=== PATIENT | male | born 1975 | race Caucasian/White ===

== ENCOUNTER 2022-03-09 09:30 | Inpatient (IN) ==
--- NOTE | 2022-02-03 16:01 | PAT Medication Instructions ---
Medication Instructions Date of Service February 03, 2022 Home Medications Medical Marijuana 1 dose inhalation DAILY PRN amlodipine 5 mg tablet 5 mg PO QAM celecoxib 200 mg capsule (Celebrex) 200 mg PO BID cetirizine 10 mg tablet (Zyrtec) 10 mg PO QAM hydrochlorothiazide 25 mg tablet 25 mg PO QAM losartan 50 mg tablet 50 mg PO QAM multivitamin 1 tab PO QAM potassium chloride 10 mEq capsule,extended release 10 meq PO QAM ASK your surgeon for instructions celecoxib 200 mg capsule (Celebrex) 200 mg PO BID STOP taking 24 hours before surgery Medical Marijuana 1 dose inhalation DAILY PRN DO NOT take the morning of surgery cetirizine 10 mg tablet (Zyrtec) 10 mg PO QAM hydrochlorothiazide 25 mg tablet 25 mg PO QAM losartan 50 mg tablet 50 mg PO QAM multivitamin 1 tab PO QAM potassium chloride 10 mEq capsule,extended release 10 meq PO QAM Take morning of surgery With a small sip of water, OTHERWISE NOTHING TO EAT OR DRINK AFTER MIDNIGHT: amlodipine 5 mg tablet 5 mg PO QAM Other Notes If you have any questions please call us at [phone] or [phone] or [phone] or [phone]
--- NOTE | 2022-02-11 10:30 | Anesthesiology Consultation ---
Date of Service February 11, 2022 Assessment & Plan (1) Encounter for pre-operative examination: - surgeon ordered PCP clearance 02/16/22. Chart Review Chart Review: Pending: Refer to Additional Notes / Consult section and Patient seen in Pre Admission Testing Teaching & Discussion Pre-Anesthesia Teaching/Discussion Notes: Instructed NPO after midnight before surgery, except medications with 15 cc of water. Medication instructions provided according to the PAT guidelines. History Surgery Operation Date: 03/09/22 07:45 Proposed Procedures p L5-S1 Decompression and Fusion, L3-L4 Decompression with Possible Coflex, Spinal Cord Monitoring - Charly Rodriguez DO Height/Weight Height: 5 ft 11 in Weight: 83.1 kg Allergies Allergy/AdvReac Type Severity Reaction Status Date / Time shellfish derived Allergy Unknown + ALLERGY Verified 02/03/22 12:13 TESTED A CHILD Medications Home Medications Medication Instructions Recorded Confirmed Last Taken Medical Marijuana 1 dose inhalation DAILY PRN Anxiety 02/03/22 02/03/22 Unknown amlodipine 5 mg tablet 5 mg PO QAM 02/03/22 02/03/22 Unknown celecoxib 200 mg capsule (Celebrex) 200 mg PO BID 02/03/22 02/03/22 Unknown cetirizine 10 mg tablet (Zyrtec) 10 mg PO QAM 02/03/22 02/03/22 Unknown hydrochlorothiazide 25 mg tablet 25 mg PO QAM 02/03/22 02/03/22 Unknown losartan 50 mg tablet 50 mg PO QAM 02/03/22 02/03/22 Unknown multivitamin 1 tab PO QAM 02/03/22 02/03/22 Unknown potassium chloride 10 mEq 10 meq PO QAM 02/03/22 02/03/22 Unknown capsule,extended release aspirin 81 mg PO QAM 02/11/22 02/11/22 Unknown tramadol 50 mg PRN Pain 02/11/22 Unknown Additional Notes: Pt advised to contact prescriber and surgeon for aspirin instructions, 81 mg. He was advised can continue tramadol if needed. This was also written on provided medication instructions. Patient verbalized full understanding and agreement, denied questions or concerns. Past Medical History Medical History (Updated 02/11/22 @ 11:06 by Ev Pepper PA-C) Anxiety Degenerative disc disease GERD (gastroesophageal reflux disease) if eats tomato products late at night Hypertension controlled, stable per pt Medical marijuana use Post traumatic stress disorder Sleep apnea NO DEVICE USED Patient denies h/o stroke, seizures, heart attack, heart failure, DM, blood clots or blood transfusions. Exercise / Class Metabolic Activity II 4-5 Yardwork/Stairs/Walk up hill (denies CP or SOB with 1 FOS) Past Family History Family History Other No family history of adverse response to anesthesia Past Surgical History Surgical History History of carpal tunnel release LEFT History of colonoscopy History of myringotomy History of tonsillectomy [place] teeth removed Past Anesthesia History No Hx of Anesthesia Complications and No Family Hx of Anesthesia Complications History of PONV No Hx of PONV and Hx of Motion Sickness Social History Smoking Status: Former smoker tobacco type: cigarettes and smokeless tobacco Do You Dip or Chew Tobacco: Yes (ADVISED) Smoking End Date: 1 YEAR AGO Hx Alcohol Use: No substance use type: does not use Review of Systems Patient denies chest pain, shortness of breath, dyspnea on exertion, fever, chills, cough, wheezing, or palpitations. Physical Exam Vital Signs Vitals BP 121/78 P 87 TEMP 98.4 SP02 98% on RA RESP 18 Physical Full cervical extension range of motion without pain TMD 3.5 finger breadths Mallampati Score 2 Dentition: intact, front upper chipped teeth, unsure if has caps/crowns; denies loose teeth, implants or bridges Lungs: normal respiratory effort. Clear throughout to auscultation, no adventitious breath sounds Cardiac: regular rate and rhythm, no murmurs noted Carotid arteries: negative bruit bilat Lab Results Anesthesia Preop Results Results Anesthesia Widget: WBC 7.44 K/ul (4.8-10.8) 02/11/22 Hgb 18.2 g/dl (14.0-18.0) H 02/11/22 Hct 51.5 % (40.1-51.0) H 02/11/22 Plt 345 K/uL (130-400) 02/11/22 Na 136 mmol/L (136-145) 02/11/22 K 3.7 mmol/L (3.5-5.1) 02/11/22 Cl 101 mmol/L (98-107) 02/11/22 CO2 28 mmol/L (21-32) 02/11/22 BUN 20 mg/dl (6-23) 02/11/22 Creat 0.86 mg/dl (0.6-1.4) 02/11/22 Glucose Level 78 mg/dl (70-99(Fasting)) 02/11/22 PT 10.9 Seconds (9.0-12.0) 02/11/22 PTT 28.3 Seconds (21.0-31.0) 02/11/22 INR 1.0 (0.9-1.1) 02/11/22 Urine Color Yellow 02/11/22 Urine Appearance Clear (Clear) 02/11/22 Urine pH 6.0 (4.5-7.5) 02/11/22 Urine Specific [place] 1.021 (1.000-1.030) 02/11/22 Urine Protein Negative (Negative) 02/11/22 Urine Glucose (UA) Negative (Negative) 02/11/22 Urine Ketones Negative (Negative) 02/11/22 Urine Blood Negative (Negative) 02/11/22 Urine Nitrite Negative (Negative) 02/11/22 Urine Bilirubin Negative (Negative) 02/11/22 Urine Urobilinogen Negative (Negative) 02/11/22 Urine Leukocyte Esterase Negative (Negative) 02/11/22 Blood Type O Positive 02/11/22 Antibody Screen NEGATIVE 02/11/22 Testing Electrocardiogram Date: 02/11/22 NSR, rate 86 bpm Possible left enlargement Chest X-Ray Date: 02/11/22 No acute cardiopulmonary findings. Echocardiogram Date: 01/19/20 EF 63% No LV wall motion abnormalities No significant valvular pathology Stress Test Date: 01/30/20 Exercise METS 12.9 MPHR 99% Negative for exertional chest pain or EKG myocardial ischemia COVID-19 Risk Screen Screening Information COVID-19 Screen Date: 02/11/22 Exposure 21 Days Family/Household +COVID Last 21 Days: No Exposure 10 Days Any COVID Exposure Last 10 Days: No Symptoms Last 10 Days Experienced COVID Sx Last 10 Days: No + COVID 0-90 Days COVID + in Last 0-90 Days: No
[~2022-03-09 09:30] MED LIST: ACETAMINOPHEN 500 MG TAB PO SCH; CeleBREX 200 MG CAP PO SCH; GABAPENTIN 900 MG DOSE PO SCH; LR 15ML/HR IV SCH; ceFAZolin 2000MG 2,000 MG/15 ML SYR IV SCH
[2022-03-09] MEDS ORDERED: MIDAZOLAM HCL 1 MG/ML 2ML VIAL ONE (12:11)
[2022-03-09] MEDS ORDERED: DEXAMETHASONE SOD INJ 4 MG/ML VIAL ONE (12:11)
[2022-03-09] MEDS ORDERED: PROPOFOL IV EMULSION 10 MG/ML 20 ML VIAL IV ONE ×2 (12:11→13:05)
[2022-03-09] MEDS ORDERED: ONDANSETRON INJ 2 MG/ML 2 ML VIAL ONE (12:11)
[2022-03-09] MEDS ORDERED: fentaNYL citrate 100 MCG/2 ML VIAL ONE ×2 (12:11→13:24)
[2022-03-09] MEDS ORDERED: ROCURONIUM BROMIDE 10 MG/ML 5 ML VIAL IV ONE ×6 (12:12)
[2022-03-09] MEDS ORDERED: LIDOCAINE 2% MPF LOCAL 5 ML VIAL INFIL ONE (12:13)
[2022-03-09] MEDS ORDERED: ONDANSETRON INJ 2 MG/ML 2 ML VIAL IV PRN ×2 (12:22→17:12)
[2022-03-09] MEDS ORDERED: ATROPINE SULFATE 0.1 MG/ML 10ML SYR IV PRN (12:22)
[2022-03-09] MEDS ORDERED: PROMETHAZINE HCL 6.25 MG in SODIUM CHLORIDE 0.9% 50 ML IV PRN (12:22)
[2022-03-09] MEDS ORDERED: ePHEDrine sulfate 50 MG/ML AMP IV PRN (12:22)
--- NOTE | 2022-03-09 12:24 | History & Physical Bridge Note ---
Date of Service March 09, 2022 History & Physical Bridge Note I have examined the patient, reviewed the History & Physical and in the interval since the performance of the History & Physical I have noted the following changes of clinical significance: no changes noted
--- NOTE | 2022-03-09 12:25 | History & Physical Report ---
Date of Service March 09, 2022 Assessment & Plan (1) Neurogenic claudication due to lumbar spinal stenosis: Plan: L5-S1 decompression and fusion, L3-L4 decompression with possible Coflex History of Present Illness Chief Complaint: Back and leg pain Primary Care Provider: Gavin Hurtado This is a 46-year-old male who presents with chronic persistent back and leg pain after failing course of nonoperative care is here for surgical invention. Allergies Allergy/AdvReac Type Severity Reaction Status Date / Time shellfish derived Allergy Unknown + ALLERGY Verified 03/09/22 10:00 TESTED A CHILD Home Medications Medication Instructions Recorded Confirmed Type Medical Marijuana 1 dose inhalation DAILY PRN Anxiety 02/03/22 03/09/22 History amlodipine 5 mg tablet 5 mg PO QAM 02/03/22 03/09/22 History celecoxib 200 mg capsule (Celebrex) 200 mg PO BID 02/03/22 03/09/22 History cetirizine 10 mg tablet (Zyrtec) 10 mg PO QAM 02/03/22 03/09/22 History hydrochlorothiazide 25 mg tablet 25 mg PO QAM 02/03/22 03/09/22 History losartan 50 mg tablet 50 mg PO QAM 02/03/22 03/09/22 History multivitamin 1 tab PO QAM 02/03/22 03/09/22 History potassium chloride 10 mEq 10 meq PO QAM 02/03/22 03/09/22 History capsule,extended release aspirin 81 mg PO QAM 02/11/22 03/09/22 History tramadol 50 mg PRN Pain 02/11/22 History Past Med/Surg History Medical History (Updated 03/09/22 @ 12:25 by Charly Rodriguez DO) Anxiety Degenerative disc disease GERD (gastroesophageal reflux disease) if eats tomato products late at night Hypertension controlled, stable per pt Medical marijuana use Post traumatic stress disorder Sleep apnea NO DEVICE USED Surgical History History of carpal tunnel release LEFT History of colonoscopy History of myringotomy History of tonsillectomy [place] teeth removed Family History Other No family history of adverse response to anesthesia Social History Smoking Status: Former smoker Smoking End Date: 1 YEAR AGO; Second Hand Exposure: Yes (LIMITED EXPOSURE>FATHER SMOKES); Do You Dip or Chew Tobacco: Yes (ADVISED); Hx Alcohol Use: No Preferred Language: Hungarian Receiver Bulk System Required: No Beliefs That Will Affect Care: None Current Living Situation: Alone Feels Safe at Home: Yes Safety Concerns: Feels Safe At This Time Assistive Devices: Contacts and Glasses Physical Exam Physical Exam: Patient is alert and oriented Heart regular rhythm Lungs clear Results & Data Results & Data ([facility]) Vital Signs (Past 12 Hours) Vital Signs Temp Pulse Resp BP Pulse Ox O2 Del Method 03/09/22 10:04 36.8 C 85 20 153/100 H 99 Room Air
[2022-03-09] MEDS ORDERED: ceFAZolin 330 MG/ML 1 GM VIAL ONE (12:58)
[2022-03-09] MEDS ORDERED: BUPIVACAINE/EPINEPHRINE 0.25% 1:200,000 30 ML VIAL ONE (12:58)
[2022-03-09] MEDS ORDERED: GLYCOPYRROLATE 0.2 MG/ML VIAL ONE ×2 (13:22)
[2022-03-09] MEDS ORDERED: NEOSTIGMINE METHYLSULFATE 1 MG/ML 10ML VIAL ONE (13:22)
--- NOTE | 2022-03-09 14:56 | Operative Report ---
Post Operative Report Pre & Post Diagnosis Operation Date: 03/09/22 11:10 Pre-Op Diagnosis: Lumbar disc herniation with radiculopathy Post-Op Diagnosis: Same I identified the patient and participated in the time-out.: Yes Procedure Operation Date: 03/09/22 11:10 Actual Procedures #1 lumbar decompression bilateral medial facetectomies and foraminotomies L3-L4 L4-L5 L5-S1. #2 posterior spinal fusion L5-S1. #3 placement of posterior instrumentation L5-S1. #4 placement of Coflex 14 mm in size at L3-L4. #5 interbody fusion L5-S1. #6 placement of Spira 14 x 26 mm cage at L5-S1. #7 placement of locally harvested morselized autograft in the posterior gutters. #8 placement of I factor model V toss interbody space and posterior gutters. Surgeon Charly Rodriguez, Naval Inspector Natalya Gomez Estimated Blood Loss 250 Findings Consistent with Post-Op Diagnosis Specimens None Indications This is a 46-year-old male who presents to the emergency diagnosis after failed course of nonoperative care is here for the above-mentioned procedure. Description of Procedure Patient was met with identified informed consent obtained. Patient was then taken to the operative suite underwent intubation placed in a prone position the Riley table top Florentino frame. All bony prominences well-padded eyes inspected to ensure no external pressure placed upon the. This point the lumbar spine was prepped and draped in a sterile fashion. Sharp dissection with the assistance of Bovie cautery was formed down to and exposing the lamina of L3-L4 and L5 including the transverse processes and sacral ala L5-S1 bilaterally. Then performed a complete laminectomy of L5 partial laminectomy of L4 and partial laminectomy of L3 including bilateral medial facetectomies and foraminotomies. I noted significant subarticular stenosis as well as foraminal disease possibly L5-S1 on the right with evidence of excess of the exiting nerve root compression. After complete decompression pedicle screws were placed in L5 and S1 levels bilaterally with assistance of fluoroscopy and the proper sized kyaw placed. By way of a transit foraminal approach and right complete discectomy of L5-S1 was performed endplates curetted to subcortical bleeding bone and a 14 x 26 mm spiral cage with I factor tapped in position. The proper size rods were then contoured and locked in position bilaterally. I then placed a 14 mm Coflex at at L3-L4 and crimped it into position. The transverse processes of L5 and s acral ala burred to subcortical bleeding bone. I factor model V testing locally harvested morselized autograft was placed in the posterior gutters. 15 round NORAH drain inserted. The incision was then closed with 1 Vicryl the fascia 2-0 Vicryl subcutaneously and 4 Monocryl for final skin closure. Steri-Strip sterile dressings placed. Patient waken taken to the PACU in stable condition. Please note spinal cord monitoring visualized at the procedure no changes noted. Lastly Natalya Gomez was present at the entire surgeon while the patient positioning complex portions of the surgery and final skin closure. I attest to the content of the Intraoperative Record and any orders documented therein. Any exceptions are noted below.
--- NOTE | 2022-03-09 15:23 | Fluoroscopy Report ---
FL lumbar spine 2-3V CLINICAL HISTORY: Decompression and fusion. COMPARISON STUDY: None. FLUOROSCOPY TIME: 26.2 seconds. FLUOROSCOPIC IMAGES: 2 FINDINGS: Fluoroscopy was provided during L3-S1 posterior decompression with L5-S1 discectomy, bilate ral pedicle screw fusion and placement of an L3-L4 Coflex device. IMPRESSION: Postoperative findings within the lumbosacral spine, as described above. ACT 112: Negative or not required by law. Electronically signed by: Dejuan Neumann M.D. 03/09/2022 3:22 PM
[2022-03-09] MEDS: fentaNYL citrate 100 MCG/2 ML VIAL IV PRN ×5 (15:25→15:45)
[2022-03-09] MEDS: HYDROmorphone INJ 2 MG/ML SYR/VIAL IV PRN ×3 (16:00→16:15)
--- NOTE | 2022-03-09 16:42 | Anesthesiology Progress Note ---
Date of Service March 09, 2022 Anesthesia Post Procedure Vital Signs Vital Signs: Temp Pulse Pulse Resp BP Pulse Ox O2 Del Method 03/09/22 16:05 97 H 5 L 148/98 H 95 Oxymask 03/09/22 15:45 87 14 142/93 H 97 Oxymask 03/09/22 15:35 89 12 155/107 H 95 Oxymask 03/09/22 16:15 37.2 C 105 H 14 136/97 98 Nasal Cannula 03/09/22 15:25 91 H 9 L 141/106 H 98 Oxymask 03/09/22 15:17 36.1 C L 99 H 16 122/77 98 Oxymask 03/09/22 10:04 36.8 C 85 20 153/100 H 99 Room Air O2 Flow Rate 03/09/22 16:05 2 03/09/22 15:45 2 03/09/22 15:35 3 03/09/22 16:15 2 03/09/22 15:25 4 03/09/22 15:17 5 03/09/22 10:04 Pain Intensity Back: Pain Intensity: 5 Transfer of Care Handoff Completed per policy Notes Mental Status: alert / awake / arousable and participated in evaluation Patient Amnestic to Procedure: Yes Nausea / Vomiting: adequately controlled Pain: adequately controlled Airway Patency, RR, SpO2: stable & adequate BP & HR: stable & adequate Hydration State: stable & adequate Anesthetic Complications: no major complications apparent and Pt Satisfied with anesthetic care
[2022-03-09] MEDS ORDERED: diphenhydrAMINE Capsule 25 MG CAP PO PRN (17:12)
[2022-03-09] MEDS ORDERED: METOCLOPRAMIDE HCL INJ 5 MG/ML 2 ML VIAL IV PRN (17:12)
[2022-03-09] MEDS ORDERED: LORazepam 0.5 MG TAB PO PRN (17:12)
[2022-03-09] MEDS ORDERED: HYDROmorphone INJ 0.5 MG/0.5 ML SYR IV PRN (17:12)
[2022-03-09] MEDS ORDERED: bisacodyL 10 MG SUPP PR PRN (17:12)
[2022-03-09] MEDS ORDERED: ONDANSETRON 4 MG OD TAB PO PRN (17:12)
[2022-03-09] MEDS ORDERED: hydrOXYzine HCl 25 MG TAB PO PRN (17:12)
[2022-03-09] MEDS ORDERED: NON-FORMULARY MEDICATION (Medical Marijuana 1 EA) INH PRN (17:12)
[2022-03-09] MEDS ORDERED: LORazepam 0.5 MG in SYRINGE 0 ML IV PRN (17:12)
[2022-03-09] MEDS ORDERED: HYDROmorphone INJ 1 MG/ML SYRINGE IV PRN (17:12)
[2022-03-09] MEDS ORDERED: FAMOTIDINE 20 MG TAB PO PRN (17:12)
[2022-03-09] MEDS ORDERED: SOD PHOSPHATE/SOD BIPHOSPHATE ENEMA 132 ML BTL PR PRN (17:12)
[2022-03-09] MEDS ORDERED: ACETAMINOPHEN 500 MG TAB PO PRN (17:12)
[2022-03-09] MEDS ORDERED: ALUMINUM/MAGNESIUM SUSP 30 ML UDC PO PRN (17:12)
[2022-03-09] MEDS ORDERED: MAGNESIUM HYDROXIDE SUSP 30 ML UDC PO PRN (17:12)
[2022-03-09] MEDS ORDERED: PROMETHAZINE HCL 12.5 MG in SODIUM CHLORIDE 0.9% 50 ML IV PRN (17:12)
[2022-03-09] MEDS ORDERED: ACETAMINOPHEN 1,000 MG/100 ML VIAL IV PRN (17:12)
[2022-03-09] MEDS ORDERED: NALOXONE HCL 0.4 MG/1 ML VIAL/CARP IV PRN (17:12)
[2022-03-09] MEDS: LACTATED RINGER'S 1,000 ML IV SCH (17:31)
--- NOTE | 2022-03-09 18:48 | Consultation ---
Date of Consultation March 09, 2022 Assessment & Plan (1) Neurogenic claudication due to lumbar spinal stenosis: (2) Hypertension: (3) Sleep apnea: (4) Anxiety: (5) Seasonal allergies: Plan 46-year-old male with chronic persistent back pain for an elective decompression and fusion procedure under the care of Dr. Rodriguez after failed conservative management. Past medical history includes hypertension, anxiety, PTSD, obstructive sleep apnea, GERD. Neurogenic claudication due to lumbar spinal stenosis: POD# 0 s/p lumbar decompression and fusion L3-S1 with Dr. Rodriguez. Per ortho for pain control, wound care, anticoagulation and activities Monitor H&H, continue incentive spirometry PT/OT when appropriate Hypertension: Takes amlodipine, HCTZ + KCL replacement, losartan; normotensive postop - continue Takes baby aspirin daily; resume with surgery recommendation Anxiety: PTSD: Uses medical marijuana; not currently at the hospital CORINNE: Does not use a CPAP machine Discussed and pt demonstrated appropriate ISB use Seasonal Allergies: Takes Cetirizine; continue Disposition: PCP: Dr. Hurtado CODE STATUS: Full code VTE prophylaxis: Teds and SCDs per primary team I personally was able to review all current laboratory work and diagnostic images obtained in the ED. Additionally, I was able to review the patients past medication reconciliation and history with direct visualization in the patients chart. This patient was seen in collaboration with Dr. Lara. Supervising Physician Co-Signing Physician Notes I have seen and examined the patient and have discussed the case with the provider above. I agree with the assessment and plan as stated with the following exceptions. 46 yo M s/p lumbar surgery earlier today. Reports his pain is well controlled. He reports feeling his typical "sciatica" pain on his right gluteus and lower back area down his right leg. Since shifting around earlier, he has had significant output into NORAH drain and some bleeding onto his dressing. His heart rate has increased over the last few hours. He denies lightheadedness, chest pain, SOB or other issues. Will bolus 1L LR now and continue his LR at 100cc/hr. Physical exam reveals tachy rate, regular rhythm with no murmurs, gallops or rubs. NORAH drain in place and almost full with agosto red bloody drainage. Lungs are CTAB, Abdomen is soft NTND and legs are warm and well perfused. Skin is warm and dry, No neuro deficits and he is mentating well with intact speech and memory. Reassess vital signs after bolus and if persistently bleeding or tachycardic, consider moving to telemetry and notify Dr. Rodriguez. Thank you for this consultation. DO Marco History of Present Illness Requesting Physician: Dr. Rodriguez Reason for Consultation: post-operative medical management Attending Physician: Charly Rodriguez DO History of Present Illness This is a 46-year-old male who presented to the [facility] with chronic persistent back pain for an elective decompression and fusion procedure under the care of Dr. Rodriguez after failed conservative management. Past medical history includes hypertension, anxiety, PTSD, obstructive sleep apnea, GERD. The patient was sitting upright in his hospital bed when I saw him. He denies WILLSON, SOB, CP, palpitations, N/V/D. He was trying to use the urinal when I was in the room but he was moving around causing some incisional bleeding at his dressing site. Pt has tolerated clear liquid diet and will advance as ordered. [facility] medical management. Please see A/P for further details. Allergies Allergy/AdvReac Type Severity Reaction Status Date / Time shellfish derived Allergy Unknown + ALLERGY Verified 03/09/22 10:00 TESTED A CHILD Home Medications Medication Instructions Recorded Confirmed Type Medical Marijuana 1 dose inhalation DAILY PRN Anxiety 02/03/22 03/09/22 History amlodipine 5 mg tablet 5 mg PO QAM 02/03/22 03/09/22 History celecoxib 200 mg capsule (Celebrex) 200 mg PO BID 02/03/22 03/09/22 History cetirizine 10 mg tablet (Zyrtec) 10 mg PO QAM 02/03/22 03/09/22 History hydrochlorothiazide 25 mg tablet 25 mg PO QAM 02/03/22 03/09/22 History losartan 50 mg tablet 50 mg PO QAM 02/03/22 03/09/22 History multivitamin 1 tab PO QAM 02/03/22 03/09/22 History potassium chloride 10 mEq 10 meq PO QAM 02/03/22 03/09/22 History capsule,extended release aspirin 81 mg PO QAM 02/11/22 03/09/22 History tramadol 50 mg PRN Pain 02/11/22 History Patient History Medical History (Updated 03/09/22 @ 20:50 by LINCOLN Valdes) Anxiety Degenerative disc disease GERD (gastroesophageal reflux disease) if eats tomato products late at night Hypertension controlled, stable per pt Medical marijuana use Post traumatic stress disorder Seasonal allergies Sleep apnea NO DEVICE USED Surgical History History of carpal tunnel release LEFT History of colonoscopy History of myringotomy History of tonsillectomy [place] teeth removed Family History Other No family history of adverse response to anesthesia Social History Smoking Status: Former smoker Smoking End Date: 1 YEAR AGO; Second Hand Exposure: Yes (LIMITED EXPOSURE>FATHER SMOKES); Do You Dip or Chew Tobacco: Yes (ADVISED); Hx Alcohol Use: No Preferred Language: Kittitian Cream Beater Required: No Beliefs That Will Affect Care: None Current Living Situation: Alone Feels Safe at Home: Yes Safety Concerns: Feels Safe At This Time Assistive Devices: Contacts and Glasses Review of Systems Review of Systems: Neuro: (-) Falls, trauma, slurred speech HEENT: (-) WILLSON, dizziness, dysphagia, visual or auditory changes CV: (-) CP, palpitations, swelling. Lumbar NORAH drain x1 bright red blood Resp: (-) SOB GI: (-) appetite changes, N/V/D, bowel changes : (-) urinary changes Skin: (-) rashes Psych: (-) anxiety, depression Physical Exam Physical Exam: Neuro: AAOx4, PERRLA, no aphagia, memory changes, CNII-XII grossly intact HEENT: head normocephalic, moist mucus membranes CV: S1/S2, (-) M/G/R, (-) edema, cap refill < 3 seconds Resp: Lungs CTA in all rodriguez. On RA GI: Abdomen S/NT/ND, Ax4 bowel sounds, (-) CVA tenderness Musculoskeletal: 5/5 B/L UE strength, 5/5 B/L LE strength. No gait disturbance Skin: (-) rashes , (-) erythema. Psych: euthymic mood Results & Data ([facility]) Vital Signs (Past 12 Hours) Vital Signs Temp Pulse Pulse Resp BP Pulse Ox O2 Del Method 03/09/22 18:00 37.4 C 112 H 16 129/82 96 Room Air 03/09/22 17:29 37.2 C 103 H 17 126/80 95 Room Air 03/09/22 17:00 110 H 16 147/76 H 96 Room Air 03/09/22 16:05 97 H 5 L 148/98 H 95 Oxymask 03/09/22 15:45 87 14 142/93 H 97 Oxymask 03/09/22 15:35 89 12 155/107 H 95 Oxymask 03/09/22 16:15 37.2 C 105 H 14 136/97 98 Nasal Cannula 03/09/22 15:25 91 H 9 L 141/106 H 98 Oxymask 03/09/22 15:17 36.1 C L 99 H 16 122/77 98 Oxymask 03/09/22 10:04 36.8 C 85 20 153/100 H 99 Room Air O2 Flow Rate 03/09/22 18:00 03/09/22 17:29 03/09/22 17:00 03/09/22 16:05 2 03/09/22 15:45 2 03/09/22 15:35 3 03/09/22 16:15 2 03/09/22 15:25 4 03/09/22 15:17 5 03/09/22 10:04 Diagnostic Findings Lumbar Spine X-Ray 03/09/22 11:10 FL lumbar spine 2-3V CLINICAL HISTORY: Decompression and fusion. COMPARISON STUDY: None. FLUOROSCOPY TIME: 26.2 seconds. FLUOROSCOPIC IMAGES: 2 FINDINGS: Fluoroscopy was provided during L3-S1 posterior decompression with L5- S1 discectomy, bilateral pedicle screw fusion and placement of an L3-L4 Coflex device. IMPRESSION: Postoperative findings within the lumbosacral spine, as described above. ACT 112: Negative or not required by law. Electronically signed by: Dejuan Neumann M.D. 03/09/2022 3:22 PM
[2022-03-09] MEDS: ceFAZolin 2000MG 2,000 MG/15 ML SYR IV SCH (20:42)
[2022-03-09] MEDS: DOCUSATE SODIUM/SENNA 50/8.6MG TAB PO SCH (20:42)
[2022-03-09] MEDS: oxyCODONE HCL IR 5 MG TAB (IMMEDIATE RELEASE) PO PRN (20:43)
[2022-03-09] MEDS ORDERED: LACTATED RINGER'S 1,000 ML IV ONE (20:57)
[2022-03-10] MEDS: LACTATED RINGER'S 1,000 ML IV SCH (03:56)
[2022-03-10] MEDS: oxyCODONE HCL IR 5 MG TAB (IMMEDIATE RELEASE) PO PRN ×3 (05:19→17:38)
[2022-03-10] MEDS: ceFAZolin 2000MG 2,000 MG/15 ML SYR IV SCH (05:19)
[2022-03-10] MEDS: POLYETHYLENE (MIRALAX) 17 GM PACK PO SCH ×3 (05:23→17:38)
[2022-03-10] MEDS: LOSARTAN POTASSIUM 50 MG TAB PO SCH (08:09)
[2022-03-10] MEDS: dexAMETHasone 6 MG in SYRINGE 0 ML IV SCH (08:09)
[2022-03-10] MEDS: CETIRIZINE HCL 10 MG TABLET PO SCH (08:09)
[2022-03-10] MEDS: amLODIPine BESYLATE 5 MG TAB PO SCH (08:09)
[2022-03-10] MEDS: hydroCHLOROthiazide 25 MG TAB PO SCH (08:09)
[2022-03-10] MEDS: POTASSIUM CHLORIDE 10 MEQ TABCR PO SCH (08:09)
[2022-03-10] MEDS: ASPIRIN 81 MG ECTAB PO SCH (08:09)
[2022-03-10] MEDS: MULTIVITAMIN TAB PO SCH (08:09)
[2022-03-10 08:30] LABS: Basophils # (auto) 0.03 K/uL (0-0.2); Basophils % (auto) 0.2 %; Eosinophils # (auto) 0.03 K/uL (0-0.50); Eosinophils % (auto) 0.2 %; Hematocrit (blood only) 40.6 % (40.1-51.0); Hemoglobin 14.4 g/dl (14.0-18.0); Immature Granulocytes # (auto) 0.06 K/uL (0.00-0.02); Immature Granulocytes % (auto) 0.5 %; Lymphocytes # (auto) 0.98 K/uL (1.2-3.4); Lymphocytes % (auto) 8.1 %; Mean Corpuscular Hemoglobin 32.2 pg (25.0-34.0); Mean Corpuscular Hgb Conc 35.5 g/dL (32.0-36.0); Mean Corpuscular Volume 90.8 fL (80.0-100.0); Mean Platelet Volume 8.6 fL (9.4-12.4); Monocytes # (auto) 1.38 K/uL (0.24-0.82); Monocytes % (auto) 11.3 %; Neutrophils # (auto) 9.69 K/uL (1.4-6.5); Neutrophils % (auto) 79.7 %; Platelet Count 288 K/uL (130-400); RDW Coefficient of Variation 12.4 % (11.5-14.5); RDW Standard Deviation 41.4 fL (36.4-46.3); Red Blood Count 4.47 M/uL (4.63-6.08); White Blood Count 12.17 K/ul (4.8-10.8)
[2022-03-10 08:52] LABS: BUN Creatinine Ratio 15.9 (10-20); Calcium 8.6 mg/dl (8.5-10.1); Creatinine Clr Calc Pharmacy 122.4 ml/min; Est GFR (African American) 124.6 ml/min; Est GFR (Non-African American) 107.5 ml/min; Potassium 3.9 mmol/L (3.5-5.1)
--- NOTE | 2022-03-10 10:46 | Orthopedic Progress Note ---
Date of Service March 10, 2022 Assessment & Plan (1) Neurogenic claudication due to lumbar spinal stenosis: Plan: At this time we will initiate physical therapy monitor his NORAH output hopefully discharge home next day or so. Admission and Anticipated Discharge Date Admission Date: March 09, 2022 Subjective Back pain controlled leg pain improved Physical Exam Physical Exam: Patient is sitting in bed. Is good strength testing. Appears comfortable. Results & Data ([facility]) Vital Signs (Past 12 Hours) Vital Signs Temp Pulse Resp BP Pulse Ox O2 Del Method 03/10/22 07:07 37.4 C 94 H 16 119/69 96 Room Air 03/10/22 03:32 37.1 C 92 H 16 118/65 98 Room Air 03/09/22 23:49 37.2 C 101 H 18 109/64 94 Room Air
--- NOTE | 2022-03-10 14:41 | Hospitalist Progress Note ---
Date of Service March 10, 2022 Assessment & Plan (1) Neurogenic claudication due to lumbar spinal stenosis: Plan: POD #1, doing well, NORAH drain in place. Pain well managed. No BM yet but juts took Miralax. PT/OT and restrictions per Ortho spine. Monitor H/H. (2) Hypertension: Plan: chronic, at goal. Cont HCTZ and losartan (3) Sleep apnea: Plan: not currently using CPAP. (4) Anxiety: Plan: Uses medical marijuana; not currently at the hospital (5) Seasonal allergies: Plan: cont cetirizine PRN (6) DVT prophylaxis: Plan: SCDs/ambulation Full Dispo-to home in next 1-2 days [facility] and Anticipated Discharge Date Admission Date: March 09, 2022 Subjective 46 yo M s/p lumbar surgery no further bleeding at incision site today drain still in place with normal posst op output pain is well managed no BM yet but just took Miralax Was able to ambulate today Review of Systems Review of Systems: All systems were reviewed and negative except as indicated on subjective above. Physical Exam Physical Exam: CONSTITUTIONAL: WNWD, vitals as above, generally well- appearing, NAD EYES: normal conjunctivae, no scleral icterus, ENT: external ear and nose normal, MMM NECK: trachea midline, RESPIRATORY: clear to auscultation bilaterally, no crackles, rales or wheezes, normal respiratory effort CARDIOVASCULAR: regular rate and rhythm, S1 and 2 heard without murmurs, gallops or rubs, no JVD, no peripheral edema, CHEST: inspection of chest was normal GASTROINTESTINAL: soft, nontender, ND, no guarding MUSCULOSKELETAL: strength 5/5 throughout, head is normocephalic and atraumatic, SKIN: warm and dry, surgical dressing covering incision site on lower back. NEUROLOGIC: CN 2-12 grossly intact, no sensory deficit, normal cognition, normal speech, no tremor PSYCHIATRIC: alert cooperative and oriented to person, place and time. Euthymic mood, makes good eye contact, language grossly intact, recent and remote memory grossly intact. Results & Data Results & Data ([facility]) Vital Signs (Past 12 Hours) Vital Signs Temp Pulse Pulse Resp BP Pulse Ox O2 Del Method 03/10/22 11:00 36.8 C 98 H 18 122/85 98 Room Air 03/10/22 07:07 37.4 C 94 H 16 119/69 96 Room Air 03/10/22 03:32 37.1 C 92 H 16 118/65 98 Room Air Laboratory Results Short CBC 03/10/22 Range/Units 07:38 WBC 12.17 H (4.8-10.8) K/ul Hgb 14.4 (14.0-18.0) g/dl Hct 40.6 (40.1-51.0) % Plt Count 288 (130-400) K/uL BMP 03/10/22 07:38 Sodium 135 L Potassium 3.9 Chloride 101 Carbon Dioxide 29 BUN 13 Creatinine 0.82 Glucose 93 Calcium 8.6 Medications Administered Current Inpatient Medications Acetaminophen (Acetaminophen 500 Mg Tab) 1,000 mg PO Q8H PRN PRN Reason: MILD Pain Scale 1,2,3 & Pre PT Stop: 04/08/22 17:11 Al Hydrox/Mg Hydrox/Simethicone (Aluminum/Magnesium Susp 30 Ml Udc) 30 ml PO Q6H PRN PRN Reason: Dyspepsia Stop: 04/08/22 17:11 Amlodipine Besylate (Amlodipine Besylate 5 Mg Tab) [facility] [place] Stop: 04/09/22 08:59 Last Admin: 03/10/22 08:09 Dose: 5 mg Aspirin (Aspirin 81 Mg Ectab) 81 mg [facility] [place] Stop: 04/09/22 08:59 Last Admin: 03/10/22 08:09 Dose: 81 mg Bisacodyl (Bisacodyl 10 Mg Supp) 10 mg UT DAILY PRN PRN Reason: Constipation Stop: 04/08/22 17:11 Cetirizine HCl (Cetirizine Hcl 10 Mg Tablet) 10 mg [facility] [place] Stop: 04/09/22 08:59 Last Admin: 03/10/22 08:09 Dose: 10 mg Diphenhydramine HCl (Diphenhydramine Capsule 25 Mg Cap) 25 mg PO Q6H PRN PRN Reason: Allergic Rhinitis/Insomnia Stop: 04/08/22 17:11 Famotidine (Famotidine 20 Mg Tab) 20 mg PO Q12H PRN PRN Reason: Dyspepsia Stop: 04/08/22 17:11 Hydrochlorothiazide (Hydrochlorothiazide 25 Mg Tab) 25 mg PO QAM ERIK Stop: 04/09/22 08:59 Last Admin: 03/10/22 08:09 Dose: 25 mg Hydromorphone HCl (Hydromorphone Inj 0.5 Mg/0.5 Ml Syr) 0.5 mg IV Q3H PRN PRN Reason: MODERATE Pain (Scale 4,5,6) & Pre PT Stop: 03/23/22 17:11 Hydromorphone HCl (Hydromorphone Inj 1 Mg/Ml Syringe) 1 mg IV Q3H PRN PRN Reason: SEVERE Pain (Scale 7,8,9,10) Stop: 03/23/22 17:11 Hydroxyzine HCl (Hydroxyzine Hcl 25 Mg Tab) 25 mg PO Q8H PRN PRN Reason: Anxiety Stop: 04/08/22 17:11 Promethazine HCl 12.5 mg/ (Sodium Chloride) 50.5 mls @ 202 mls/hr IV Q6H PRN PRN Reason: Nausea &/or Vomiting Stop: 04/08/22 17:11 Acetaminophen (Ofirmev) 1,000 mg in 100 mls @ 400 mls/hr IV Q8H PRN PRN Reason: Pain Rating 1-3 & Pre PT Stop: 03/10/22 17:13 Lorazepam 0.5 mg/ Syringe 0.5 mls @ 2 mls/min IV Q8H PRN PRN Reason: Sedation/Anxiety Stop: 04/08/22 17:11 Dexamethasone 6 mg/ Syringe 1.5 mls @ 1 mls/min IV DAILY ERIK Stop: 03/12/22 09:02 Last Admin: 03/10/22 08:09 Dose: 1 mls/min Lorazepam (Lorazepam 0.5 Mg Tab) 0.5 mg PO Q8H PRN PRN Reason: Sedation/Anxiety Stop: 04/08/22 17:11 Losartan Potassium (Losartan Potassium 50 Mg Tab) 50 mg PO QAM ERIK Stop: 04/09/22 08:59 Last Admin: 03/10/22 08:09 Dose: 50 mg Magnesium Hydroxide (Magnesium Hydroxide Susp 30 Ml Udc) 30 ml PO Q24H PRN PRN Reason: Constipation Stop: 04/08/22 17:11 Metoclopramide HCl (Metoclopramide Hcl Inj 5 Mg/Ml 2 Ml Vial) 10 mg IV Q6H PRN PRN Reason: Nausea &/or Vomiting Stop: 04/08/22 17:11 Multivitamins (Multivitamin Tab) 1 tab PO QAM ERIK Stop: 04/09/22 08:59 Last Admin: 03/10/22 08:09 Dose: 1 tab Naloxone HCl (Naloxone Hcl 0.4 Mg/1 Ml Vial/Carp) 0.1 mg IV Q5M PRN PRN Reason: Oversedation/Resp depression Stop: 04/08/22 17:11 Ondansetron HCl (Ondansetron Inj 2 Mg/Ml 2 Ml Vial) 4 mg IV Q6H PRN PRN Reason: Nausea &/or Vomiting Stop: 04/08/22 17:11 Ondansetron HCl (Ondansetron 4 Mg Od Tab) 4 mg PO Q6H PRN PRN Reason: Nausea Stop: 04/08/22 17:11 Oxycodone HCl (Oxycodone Hcl Ir 5 Mg Tab (Immediate Release)) 5 - 10 mg PO Q4H PRN PRN Reason: Pain & Pre PT Stop: 03/23/22 17:11 Last Admin: 03/10/22 09:37 Dose: 10 mg Polyethylene Glycol (Polyethylene (Miralax) 17 Gm Pack) 17 gm PO Q6 ERIK Stop: 04/09/22 05:59 Last Admin: 03/10/22 13:18 Dose: 17 gm Potassium Chloride (Potassium Chloride 10 Meq Tabcr) 10 meq PO QAM ERIK Stop: 04/09/22 08:59 Last Admin: 03/10/22 08:09 Dose: 10 meq Senna/Docusate Sodium (Docusate Sodium/Senna 50/8.6mg Tab) 2 tab PO HS ERIK Stop: 04/08/22 20:59 Last Admin: 03/09/22 20:42 Dose: 2 tab Sodium Biphosphate/Sodium Phosphate (Sod Phosphate/Sod Biphosphate Enema 132 Ml Btl) 132 ml UT ONE PRN PRN Reason: Constipation Stop: 04/08/22 17:11 Tramadol HCl (Tramadol Hcl 50 Mg Tablet) 50 - 100 mg PO Q4H PRN PRN Reason: Moderate-Severe pain & Pre PT Stop: 04/08/22 17:11
[2022-03-10] MEDS: DOCUSATE SODIUM/SENNA 50/8.6MG TAB PO SCH (21:55)
[2022-03-11] MEDS: POLYETHYLENE (MIRALAX) 17 GM PACK PO SCH ×4 (01:00→17:57)
[2022-03-11] MEDS: oxyCODONE HCL IR 5 MG TAB (IMMEDIATE RELEASE) PO PRN ×2 (05:50→13:00)
[2022-03-11] MEDS: dexAMETHasone 6 MG in SYRINGE 0 ML IV SCH (08:41)
[2022-03-11] MEDS: ASPIRIN 81 MG ECTAB PO SCH (08:41)
[2022-03-11] MEDS: amLODIPine BESYLATE 5 MG TAB PO SCH (08:41)
[2022-03-11] MEDS: CETIRIZINE HCL 10 MG TABLET PO SCH (08:41)
[2022-03-11] MEDS: LOSARTAN POTASSIUM 50 MG TAB PO SCH (08:42)
[2022-03-11] MEDS: MULTIVITAMIN TAB PO SCH (08:42)
[2022-03-11] MEDS: POTASSIUM CHLORIDE 10 MEQ TABCR PO SCH (08:42)
[2022-03-11] MEDS: hydroCHLOROthiazide 25 MG TAB PO SCH (08:42)
--- NOTE | 2022-03-11 09:18 | Orthopedic Progress Note ---
Date of Service March 11, 2022 Assessment & Plan (1) Neurogenic claudication due to lumbar spinal stenosis: Plan: Patient will continue physical therapy today we will maintain his drain anticipate discharge home tomorrow. Admission and Anticipated Discharge Date Admission Date: March 09, 2022 Subjective Back pain is controlled leg symptoms are improving Physical Exam Physical Exam: Patient appears comfortable is constricted testing. Results & Data ([facility]) Vital Signs (Past 12 Hours) Vital Signs Temp Pulse Pulse Resp BP Pulse Ox O2 Del Method 03/11/22 07:42 37.0 C 78 18 108/68 95 Room Air 03/10/22 21:58 36.8 C 82 14 106/61 96 Room Air
--- NOTE | 2022-03-11 17:15 | Hospitalist Progress Note ---
Date of Service March 11, 2022 Assessment & Plan (1) Neurogenic claudication due to lumbar spinal stenosis: Plan: Per Dr. Lara's notes with addendum: Postop day #2 Remains stable overall Pain well controlled Continue DVT prophylaxis per Ortho service (2) Hypertension: Plan: Stable Cont amlodipine, HCTZ and losartan (3) Sleep apnea: Plan: not currently using CPAP (4) Anxiety: Plan: Uses medical marijuana; not currently at the hospital (5) Seasonal allergies: Plan: cont cetirizine PRN (6) DVT prophylaxis: Plan: SCDs/ambulation Full Dispo Ortho anticipating discharge home tomorrow Admission and Anticipated Discharge Date Admission Date: March 09, 2022 Subjective Follow-up for status post lumbar spine surgery, etc. Seen sitting up in bed, comfortable, not in distress States he feels fine overall Has some mild pain over his lower back, but ambulating well in the hallways no chest pain, dyspnea, palpitations, dizziness No other symptoms Review of Systems Review of Systems: all noted and negative except for above Physical Exam Physical Exam: General- oriented x 3, not in distress, speaks in sentences with no effort or accessory muscle use Eyes- anicteric Neck- no JVD Lungs- clear breath sounds bilaterally, no rales/wheezes Heart- normal rate, regular rhythm; no murmurs Abdomen- normal bowel sounds, nondistended, soft, nontender Extremities- no pretibial edema, no calf tenderness Neuro- alert, oriented x 3; no gross focal neurologic deficits Skin- warm & dry Results & Data Results & Data ([facility]) Vital Signs (Past 12 Hours) Vital Signs Temp Pulse Pulse Resp BP Pulse Ox O2 Del Method 03/11/22 14:14 37.2 C 102 H 14 115/74 96 Room Air 03/11/22 07:42 37.0 C 78 18 108/68 95 Room Air all noted and reviewed including below
[2022-03-11] MEDS ORDERED: SODIUM CHLORIDE 0.9% 1000ML 1,000 ML IV ONE (17:19)
[2022-03-11 17:53] LABS: Basophils # (auto) 0.02 K/uL (0-0.2); Basophils % (auto) 0.2 %; Eosinophils # (auto) 0.01 K/uL (0-0.50); Eosinophils % (auto) 0.1 %; Hematocrit (blood only) 38.2 % (40.1-51.0); Hemoglobin 13.2 g/dl (14.0-18.0); Immature Granulocytes # (auto) 0.07 K/uL (0.00-0.02); Immature Granulocytes % (auto) 0.8 %; Lymphocytes # (auto) 0.53 K/uL (1.2-3.4); Lymphocytes % (auto) 5.7 %; Mean Corpuscular Hemoglobin 32.2 pg (25.0-34.0); Mean Corpuscular Hgb Conc 34.6 g/dL (32.0-36.0); Mean Corpuscular Volume 93.2 fL (80.0-100.0); Mean Platelet Volume 8.4 fL (9.4-12.4); Monocytes # (auto) 0.63 K/uL (0.24-0.82); Monocytes % (auto) 6.8 %; Neutrophils # (auto) 7.99 K/uL (1.4-6.5); Neutrophils % (auto) 86.4 %; Platelet Count 254 K/uL (130-400); RDW Coefficient of Variation 12.9 % (11.5-14.5); RDW Standard Deviation 44.3 fL (36.4-46.3); White Blood Count 9.25 K/ul (4.8-10.8)
[2022-03-11 18:12] LABS: Albumin Globulin Ratio 1.6 (0.9-2); Albumin Level 3.5 gm/dl (3.4-5.0); BUN Creatinine Ratio 22.2 (10-20); Bilirubin,Total 0.3 mg/dl (0.2-1.0); Calcium 8.4 mg/dl (8.5-10.1); Creatinine Clr Calc Pharmacy 111.6 ml/min; Est GFR (Non-African American) 103.5 ml/min; Globulin 2.2 gm/dl (2.5-4.0); Potassium 4.1 mmol/L (3.5-5.1); Total Protein 5.7 gm/dl (6.0-8.3)
[2022-03-11] MEDS: SODIUM CHLORIDE 0.9% 1000ML 1,000 ML IV SCH (18:29)
[2022-03-11] MEDS: DOCUSATE SODIUM/SENNA 50/8.6MG TAB PO SCH (21:52)
[2022-03-11] MEDS: traMADol HCL 50 MG TABLET PO PRN (21:56)
[2022-03-11 23:51] LABS: Hematocrit (blood only) 36.8 % (40.1-51.0)
[2022-03-12] MEDS: POLYETHYLENE (MIRALAX) 17 GM PACK PO SCH ×3 (00:52→12:13)
[2022-03-12] MEDS: SODIUM CHLORIDE 0.9% 1000ML 1,000 ML IV SCH ×2 (02:08→10:20)
[2022-03-12] MEDS: traMADol HCL 50 MG TABLET PO PRN ×2 (06:15→10:15)
--- NOTE | 2022-03-12 08:48 | Discharge Summary ---
Date of Service March 12, 2022 Principal Diagnosis Lumbar spinal stenosis with radiculopathy Discharge Data Allergies Allergy/AdvReac Type Severity Reaction Status Date / Time shellfish derived Allergy Unknown + ALLERGY Verified 03/09/22 10:00 TESTED A CHILD Consultations 03/09/22 17:12 Consult Hospitalist Routine Procedures Performed Operation Date: 03/09/22 11:10 Actual Procedures p L5-S1 Decompression and Fusion, L3-L4 Decompression with Possible Coflex, Spinal Cord Monitoring(Not Applicable) - Charly Rodriguez DO Ordered Studies 03/09/22 11:10 FL lumbar spine 2-3V Routine Hospital Course (1) Neurogenic claudication due to lumbar spinal stenosis: Patient underwent lumbar decompression fusion tolerated so was taken to or thopedic for postoperative. Postop day 1 is up and ambulating. Postop day #2 on postop day or 3 pain is controlled ambulating without difficulty good strength testing. Subsidy discharged home. Discharge orders instructions from the chart for further review. Total Time Total Time Spent Total Time Spent (In Minutes): 20 minutes Discharge Plan Discharge Items Patient Disposition: Home - Self-Care Reason For Visit: POSTOP Discharge Diagnosis: Lumbar spinal stenosis with radiculopathy Activity: As commented below Non-emergency contact: Primary Care Provider Call non-emergency contact if: you have any medication questions Follow-up/Referrals: Gavin Hurtado, [email or web address]. [Primary Care Provider] - Diet: Regular Addtl Attending Provider Instructions: ACTIVITY RECOMMENDATIONS: SELF CARE INSTRUCTIONS AFTER THORACIC/LUMBAR FUSIONS 1. You may walk to your tolerance. It is good exercise for your legs and back. Expect some back and intermittent leg aches and pains. 2. You may perform "counter-top" level activities (make a sandwich, lio with a project, etc.). 3. No bending or lifting of more than 10 pounds or back twisting of any nature (roll like a log when turning in bed). 4. You may ride in a car for 20-30 minutes at a time. No driving until after your first visit with your doctor. 5. Frequent changes of position and restricting sitting to 30 minutes at a time will help limit the amount of back spasms and stiffness you may experience. 6. You may discontinue the use of ambulatory aids (cane, crutches, etc.) once your strength and confidence allow. 7. You may global marketing intern the shower and let water strike your incision when you arrive home at least once daily. Do not take a tub bath, sit in a hot tub or go into a swimming pool until after your first recheck in the office. SPECIAL CARE INSTRUCTIONS: VERY IMPORTANT TO READ AND REVIEW A. Your surgical incision has been closed with a cosmetic suture under the skin that will dissolve in about 6 weeks. In 14 days, you can use a pair of clean scissors and cut the suture that is left outside of the skin at the ends of your incision. 1. The small skin tapes can be removed 7 days after surgery if they have not fallen off by that point. 2. You may keep the wound open to air as much as possible to promote healing after post-op day number 5 unless told otherwise by your doctor. 3. If you think the wound looks like it is becoming infected (redness or worsening drainage) and/or you are experiencing fever, chill or worsening back pain and muscle spasms, contact the office so that we may evaluate you as soon as possible. B. Complications are uncommon, but please contact us if you have any signs or symptoms of: 1. wound infection (fever higher than 102.5 degrees F, redness, separation of wound, drainage, or increasing pain from the incision) 2. blood clots in legs (pain, swelling, redness and warmth in legs) 3. urinary tract infection (fever higher than 102.5 degrees F, burning upon urination or increased frequency of urination) 4. nerve problems (inability to walk on your toes or heels, numbness, loss of bowel or bladder control) 5. any other symptoms that concern you C. Please call the office at if you have any concerns or questions about your operation or recovery. D. No smoking! Smoking drastically decreases the chance of a solid fusion. E. Do not take any anti-inflammatory medications (Indocin, Advil, Motrin, Aspirin, Naprosyn, etc.) as these may inhibit the chance of a solid fusion. Tylenol is okay to take for pain. MANAGING PAIN AFTER SPINAL SURGERY 1. Narcotic medication is intended for short-term use and will be provided for surgical pain. Surgical pain usually lasts for a period of 4-6 weeks. Narcotic medication includes Percocet, Vicodin, Darvocet, Tylenol #3 or Lortab. 2. Longer-term pain is more appropriately treated with non-narcotic medication such as Tylenol ES. 3. Muscle spasm is not appropriately treated with narcotics. Muscle relaxers such as Soma, Flexeril or Skelaxin can be used along with Tylenol ES. 4. Remember that we all live with some "aches and pains". This is not unusual or uncommon after an injury or as we get older. a. Back pain is expected and may include muscle spasms for 4 to 6 weeks after surgery. The pain should gradually improve. If the pain worsens for no apparent reason, please contact the office. b. Intermittent leg pain may also be experienced and should not be concerned about unless it worsens for no apparent reason. If so, please contact the office. 5. We will provide appropriate medication within the normal guidelines of their prescribed use. We will also be very cautious and aware of potential abuse and extended duration of patients' medication needs. a. Pain medications are for your comfort and to assist with sleep and rest s o that the tissue can heal. They are not provided in order to return to normal activity and should not be used through the day. To do so or worsening pain at night can result from ongoing tissue damage and development of tolerance to the prescribed medicine. 6. Please allow 2-3 days to process refills. Prescriptions will not be mailed but must be picked up at the office. FOLLOW UP VISIT: Keep your scheduled follow-up appointment. Any questions, please call the office at . Pending Studies at Discharge: No Stand-Alone Forms: My [facility], Smoking Cessation Medications and DC Order Prescriptions: New tramadol 50 mg tablet 50 mg PO Q6H PRN (Reason: pain, moderate) Qty: 30 0RF oxycodone 5 mg tablet 5 mg PO Q6H PRN (Reason: pain, severe) Qty: 30 0RF Continued multivitamin Tablet 1 tab PO QAM losartan 50 mg Tablet 50 mg PO QAM Label Comments: PT UNSURE OF DOSE>WILL BRING PAT APT celecoxib [Celebrex] 200 mg Capsule 200 mg PO BID potassium chloride 10 mEq Capsule, Extended Release 10 meq PO QAM Label Comments: UNSURE OF DOSE cetirizine [Zyrtec] 10 mg Tablet 10 mg PO QAM amlodipine 5 mg Tablet 5 mg PO QAM Label Comments: UNSURE OF DOSE hydrochlorothiazide 25 mg Tablet 25 mg PO QAM Label Comments: UNSURE OF DOSE Medical Marijuana 1 dose inhalation DAILY PRN (Reason: Anxiety) aspirin 81 mg PO QAM tramadol 50 mg PRN (Reason: Pain) Discharge Orders: Discharge Order (Routine); Ordered 03/12/22 Ordered By: Charly Rodriguez Admission Data Admit Date/Time: 03/09/22 15:00 Attending Provider: Charly Rodriguez Admit Provider: Charly Rodriguez Primary Care Provider: Gavin Hurtado Other Providers: Angelica Lara ; Malachi Francisco
[2022-03-12] MEDS: POTASSIUM CHLORIDE 10 MEQ TABCR PO SCH (08:55)
[2022-03-12] MEDS: ASPIRIN 81 MG ECTAB PO SCH (08:55)
[2022-03-12] MEDS: MULTIVITAMIN TAB PO SCH (08:55)
[2022-03-12] MEDS: dexAMETHasone 6 MG in SYRINGE 0 ML IV SCH (08:55)
[2022-03-12] MEDS: CETIRIZINE HCL 10 MG TABLET PO SCH (08:55)
[2022-03-12 10:31] LABS: Basophils # (auto) 0.03 K/uL (0-0.2); Basophils % (auto) 0.4 %; Eosinophils # (auto) 0.07 K/uL (0-0.50); Eosinophils % (auto) 0.9 %; Hematocrit (blood only) 36.6 % (40.1-51.0); Hemoglobin 12.8 g/dl (14.0-18.0); Immature Granulocytes # (auto) 0.05 K/uL (0.00-0.02); Immature Granulocytes % (auto) 0.7 %; Lymphocytes % (auto) 15.9 %; Mean Corpuscular Hemoglobin 32.1 pg (25.0-34.0); Mean Corpuscular Volume 91.7 fL (80.0-100.0); Mean Platelet Volume 8.7 fL (9.4-12.4); Monocytes % (auto) 6.6 %; Neutrophils # (auto) 5.71 K/uL (1.4-6.5); Neutrophils % (auto) 75.5 %; Platelet Count 267 K/uL (130-400); RDW Coefficient of Variation 12.8 % (11.5-14.5); RDW Standard Deviation 43.2 fL (36.4-46.3); Red Blood Count 3.99 M/uL (4.63-6.08); White Blood Count 7.56 K/ul (4.8-10.8)
[2022-03-12 11:03] LABS: BUN Creatinine Ratio 20.5 (10-20); Calcium 8.3 mg/dl (8.5-10.1); Creatinine Clr Calc Pharmacy 128.7 ml/min; Est GFR (African American) 127.2 ml/min; Est GFR (Non-African American) 109.8 ml/min; Potassium 3.4 mmol/L (3.5-5.1)
[2022-03-12] MEDS ORDERED: amLODIPine BESYLATE 5 MG TAB PO ONE (11:55)
== END 2022-03-12 14:11 | disposition home or self-care (01) | DRG 455 ==
LOC: ASU 09:30 → 3W 15:00